=== PATIENT | female | born 1985 | race Caucasian/White ===

== ENCOUNTER 2023-04-06 01:22 | Emergency (ER) | payer OTHER, SELFPAY ==
[2023-04-06 01:34] VITALS: BP 121/74; PULSE 85; RESP 18; TEMP 36.7; O2SAT 99; BMI 30.1
--- NOTE | 2023-04-06 01:35 | ED_ITS ---
HPI - General Adult General Chief complaint: Nausea/Vomiting Stated complaint: Nausea Time Seen by Provider: 04/06/23 01:33 History of Present Illness HPI narrative: CC: Nausea pt. with nausea for last couple of days. wants to get test. denies diarrhea, fevers. 37-year-old woman presenting to the emergency department with concern of nausea and just not feeling well over the last few days. No fever. Not so much abdominal pain. No vaginal bleeding. Primary symptom of feeling nauseated and feels bloated, gesturing to the low mid pelvis. No dysuria. Missed a few days of control recently. She has concerns of potential and would like a test. Has also brought in daughter with sore throat and concern of strep. She doubts herself to have similar. Related Data Home Medications Medication Instructions Recorded Confirmed No Known Home Medications 04/06/23 04/06/23 Allergies Allergy/AdvReac Type Severity Reaction Status Date / Time No Known Drug Allergies Allergy Verified 04/06/23 01:37 Review of Systems Status of ROS: Reports: 6 or more systems reviewed and unremarkable except as noted in History and below [facility] Medical History No significant past medical history Surgical History No significant past surgical history Social History Smoking Status: Never smoker Second hand tobacco smoke exposure: No How often do you have a drink containing alcohol: never How often do you have six or more drinks on one occasion: Never AUDIT-C Alcohol total score: 0 Non-prescribed substance use: denies use Exam Narrative: Exam Narrative: Pleasant. NAD. Breathing easily. Sounds a little congested in the nasopharynx. Oropharynx is moist without erythema. Lungs appear to be clear. Heart in regular rate and rhythm. Abdomen is soft; does not appear to be particularly tender. Transitioning without difficulty. Extremities are well perfused. Const: Vital Signs, click to edit/add: Vital Signs - 24 hr 04/06/23 01:34 Temperature 98.0 F Pulse Rate [Right Pulse Oximeter] 85 Respiratory Rate 18 Blood Pressure [Ri ght Upper Arm] 121/74 Pulse Oximetry 99 Oxygen Delivery Me thod Room Air Documenting provider has reviewed patient's vital signs: yes Course Vital Signs Vital signs: Initial Vital Signs Temperature 98.0 F 04/06/23 01:34 Temperature Source Temporal Artery Scan 04/06/23 01:34 Pulse Rate 85 04/06/23 01:34 Respiratory Rate 18 04/06/23 01:34 Blood Pressure 121/74 04/06/23 01:34 Blood Pressure Mean 89 04/06/23 01:34 Blood Pressure Position Sitting 04/06/23 01:34 Pulse Oximetry 99 04/06/23 01:34 Oxygen Delivery Method Room Air 04/06/23 01:34 Vital Signs Temperature 98.0 F 04/06/23 01:34 Pulse Rate 85 04/06/23 01:34 Respiratory Rate 18 04/06/23 01:34 Blood Pressure 121/74 04/06/23 01:34 Pulse Oximetry 99 04/06/23 01:34 Oxygen Delivery Method Room Air 04/06/23 01:34 Temperature 98.0 F 04/06/23 02:23 Pulse Rate 89 04/06/23 02:23 Respiratory Rate 18 04/06/23 02:23 Blood Pressure 118/78 04/06/23 02:23 Pulse Oximetry 99 04/06/23 02:23 Oxygen Delivery Method Room Air 04/06/23 02:23 Medical Decision Making MDM Narrative Medical decision making narrative: Ms Durant has very specific concern for herself. I did ask if we could add a urinalysis while testing for . I wonder if has some viral process NOS or possibly strep. She does not want to be evaluated beyond the above. Daughter here today was positive for strep throat Normal urinalysis and negative test See patient discharge plan Lab Data Lab results reviewed: Yes I reviewed the patient's lab results Labs: Lab Results 04/06/23 04/06/23 Range/Units 01:38 01:42 Urine Color Yellow (Yellow) Urine Appearance Clear (Clear) Urine pH 6.0 (5.0-8.5) Ur Specific [place] 1.020 (1.000-1.030) Urine Protein Negative (Negative) Urine Glucose (UA) Negative (Negative) Urine Ketones Negative (Negative) Urine Blood Trace-intact A (Negative) Urine Nitrite Negative (Negative) Urine Bilirubin Negative (Negative) Urine Urobilinogen 0.2 (0.2-1.0) Ur Leukocyte Esterase Trace A (Negative) Urine RBC 0-2 (0-2) Urine WBC 0-2 (0-5) Ur Squamous Epith Cells Few (None-Few) Urine Bacteria Few A (None) Urine HCG, Qual Negative (Negative) Discharge Plan Discharge Clinical Impression: Malaise, Nausea Patient Disposition: Home, Self-Care Condition: Stable Additional Instructions: Focus on hydration. Return for increasing and persistent discomfort, intractable vomiting. Prescriptions: No Action No Known Home Medications Follow Up/Referrals: Provider,Not a Local [Primary Care Provider] - Stand Alone Forms: [facility] Info Instructions
[2023-04-06 01:51] LABS: Appearance Urine Clear (Clear); Bilirubin Urine Negative (Negative); Blood Urine Trace-intact (Negative); Color Urine Yellow (Yellow); Glucose Urine Negative (Negative); Ketones Urine Negative (Negative); Leukocyte Esterase Urine Trace (Negative); Nitrite Urine Negative (Negative); Protein Urine Negative (Negative); Urobilinogen Urine 0.2 (0.2-1.0)
[2023-04-06 01:52] LABS: Ur HCG Qualitative* Negative (Negative)
[2023-04-06 02:08] LABS: Bacteria Urine Few; RBC Urine 0-2 (0-2); Squamous Epithelial Cell Urine Few (None-Few); WBC Urine 0-2 (0-5)
[2023-04-06 02:22] VITALS: BP 121/74; PULSE 85; RESP 18; TEMP 36.7
[2023-04-06 02:23] VITALS: BP 118/78; PULSE 89; RESP 18; TEMP 36.7; O2SAT 99
== END 2023-04-06 02:23 | disposition home or self-care (01) ==
PROVIDERS: Emergency Provider Family Medicine
DX: R53.81 Other malaise (principal); R11.0 Nausea
CPT/HCPCS: 81001; 81025; 87086; 99282; 99283; 99284